=== PATIENT | female | born 1945 | race Caucasian/White ===

== ENCOUNTER → 2024-04-06 | Outpatient (CLI) | payer MEDICARE, BC, SELFPAY ==
[2024-04-06 12:36] LABS: Collection Type, Urine Clean Catch
[2024-04-06 13:08] LABS: Basophils % (Auto) 1 % (0-2.5); Eosinophils # (Auto) 0.2 Thou/mm3 (0.0-0.5); Eosinophils % (Auto) 3 % (0-10); Hematocrit 38.5 % (36.0-46.0); Hemoglobin 12.6 g/dL (12.0-16.0); Immature Granulocytes % (Auto) 2 % (0-0); Immature Granulocytes Auto 0.09 Thou/mm3 (0.00-0.00); Lymphocytes # (Auto) 2.5 Thou/mm3 (1.0-4.8); Lymphocytes % (Auto) 42 % (10-50); Mean Corpuscular HGB Conc 32.7 g/dl (31.0-37.0); Mean Corpuscular Hemoglobin 33.3 pg (25.0-35.0); Mean Corpuscular Volume 102 fL (80-100); Monocytes # (Auto) 0.5 Thou/mm3 (0.0-0.8); Monocytes % (Auto) 9 % (0-12); Neutrophils # (Auto) 2.8 Thou/mm3 (1.8-7.7); Neutrophils % (Auto) 45 % (37-80); Nucleated Red Blood Cell % 0 /100 WBC (0); Platelet Count 140 Thou/mm3 (140-440); RDW Standard Deviation 54.2 fL (36.4-46.3); Red Blood Count 3.78 Miln/mm3 (4.00-5.20); White Blood Count 6.1 Thou/mm3 (3.6-11.0)
[2024-04-06 13:20] LABS: Albumin, Serum 4.2 gm/dL (3.4-4.8); Anion Gap 7 (7-16); BUN/Creatinine Ratio 16 Ratio (12-20); Blood Urea Nitrogen 24 mg/dL (9-23); Calcium 9.8 mg/dL (8.3-10.6); Calcium (Corrected) 9.8 mg/dL (8.5-10.1); Carbon Dioxide 31.8 mMol/L (20.0-31.0); Chloride 102 mMol/L (98-107); Creatinine (Component) 1.5 mg/dL (0.6-1.3); Glucose 97 mg/dL (74-106); Osmolality,Calculated 285 (275-295); Phosphorous 2.2 mg/dL (2.4-5.1); Potassium 3.9 mMol/L (3.4-5.1); Sodium 141 mMol/L (136-145); eGFR 35 See Note
[2024-04-06 13:29] LABS: Bacteria,Urine Rare; Bilirubin,Urine Negative (Negative); Blood,Urine Negative (Negative); Clarity,Urine Clear (Clear/Hazy); Color,Urine Yellow (Lt Yel-Yel); Glucose, Urine Negative (Negative); Ketones,Urine Negative (Negative); Leukocyte Esterase,Urine Positive (Negative); Nitrite,Urine Negative (Negative); Protein,Urine Trace (Neg - Trace); RBC,Urine 3 /hpf (0-3); Specific Gravity,Urine 1.015 (1.001-1.035); Squamous Epithelial Cell,Urine < 1 /hpf (0-5); Urobilinogen,Urine Negative mg/dL (0.0-1.0); WBC,Urine 66 /hpf (0-5)
== END | disposition home or self-care (01) ==
LOC: COPL 11:53
PROVIDERS: PCP Family Medicine; Referring Provider Internal Medicine Nephrology; Visit Provider Internal Medicine Nephrology
DX: Z01.89 Encounter for other specified special examinations (principal)
CPT/HCPCS: 36415; 80069; 81001; 85025

== ENCOUNTER → 2024-06-24 | Outpatient (CLI) | payer MEDICARE, BC, SELFPAY ==
[2024-06-24 13:17] LABS: Basophils % (Auto) 0 % (0-2.5); Eosinophils # (Auto) 0.1 Thou/mm3 (0.0-0.5); Eosinophils % (Auto) 2 % (0-10); Hematocrit 38.8 % (36.0-46.0); Hemoglobin 12.6 g/dL (12.0-16.0); Immature Granulocytes % (Auto) 1 % (0-0); Immature Granulocytes Auto 0.04 Thou/mm3 (0.00-0.00); Lymphocytes # (Auto) 2.1 Thou/mm3 (1.0-4.8); Lymphocytes % (Auto) 32 % (10-50); Mean Corpuscular HGB Conc 32.5 g/dl (31.0-37.0); Mean Corpuscular Hemoglobin 33.2 pg (25.0-35.0); Mean Corpuscular Volume 102 fL (80-100); Monocytes # (Auto) 0.2 Thou/mm3 (0.0-0.8); Monocytes % (Auto) 3 % (0-12); Neutrophils # (Auto) 4.2 Thou/mm3 (1.8-7.7); Neutrophils % (Auto) 63 % (37-80); Nucleated Red Blood Cell % 0 /100 WBC (0); Platelet Count 141 Thou/mm3 (140-440); RDW Standard Deviation 55.3 fL (36.4-46.3); White Blood Count 6.6 Thou/mm3 (3.6-11.0)
[2024-06-24 13:25] LABS: Alanine Aminotransferase 28 U/L (10-49); Albumin, Serum 3.9 gm/dL (3.4-4.8); Albumin/Globulin Ratio 1.9 (1.2-2.2); Alkaline Phosphatase 64 U/L (46-116); Anion Gap 8 (7-16); Aspartate Amino Transferase 39 U/L (0-34); BUN/Creatinine Ratio 15 Ratio (12-20); Bilirubin,Total 0.7 mg/dL (0.3-1.2); Blood Urea Nitrogen 23 mg/dL (9-23); C-Reactive Protein 2.3 mg/dL (0.0-0.9); Calcium 9.2 mg/dL (8.3-10.6); Calcium (Corrected) 9.3 mg/dL (8.5-10.1); Carbon Dioxide 31.6 mMol/L (20.0-31.0); Chloride 100 mMol/L (98-107); Creatinine (Component) 1.5 mg/dL (0.6-1.3); Globulin 2.1 gm/dL (2.3-3.5); Glucose 92 mg/dL (74-106); Osmolality,Calculated 283 (275-295); Potassium 3.7 mMol/L (3.4-5.1); Sodium 140 mMol/L (136-145); eGFR 35 See Note
[2024-06-24 14:36] LABS: Sed Rate (ESR) 6 mm/hr (0-30)
== END | disposition home or self-care (01) ==
LOC: COPL 12:20
PROVIDERS: PCP Family Medicine; Referring Provider Nurse Practitioner Family; Visit Provider Nurse Practitioner Family
DX: M06.041 Rheumatoid arthritis without rheumatoid factor, right hand (principal); R53.83 Other fatigue; Z79.899 Other long term (current) drug therapy
CPT/HCPCS: 36415; 80053; 85025; 85652; 86140

== ENCOUNTER → 2024-08-06 | Outpatient (CLI) | payer MEDICARE, BC, SELFPAY ==
[2024-08-06 13:34] LABS: Basophils % (Auto) 0 % (0-2.5); Eosinophils # (Auto) 0.1 Thou/mm3 (0.0-0.5); Eosinophils % (Auto) 2 % (0-10); Hematocrit 36.9 % (36.0-46.0); Hemoglobin 11.9 g/dL (12.0-16.0); Immature Granulocytes % (Auto) 1 % (0-0); Immature Granulocytes Auto 0.06 Thou/mm3 (0.00-0.00); Lymphocytes # (Auto) 1.3 Thou/mm3 (1.0-4.8); Lymphocytes % (Auto) 25 % (10-50); Mean Corpuscular HGB Conc 32.2 g/dl (31.0-37.0); Mean Corpuscular Hemoglobin 33.4 pg (25.0-35.0); Mean Corpuscular Volume 104 fL (80-100); Monocytes # (Auto) 0.2 Thou/mm3 (0.0-0.8); Monocytes % (Auto) 4 % (0-12); Neutrophils # (Auto) 3.5 Thou/mm3 (1.8-7.7); Neutrophils % (Auto) 68 % (37-80); Nucleated Red Blood Cell % 0 /100 WBC (0); Platelet Count 175 Thou/mm3 (140-440); RDW Standard Deviation 55.8 fL (36.4-46.3); Red Blood Count 3.56 Miln/mm3 (4.00-5.20); White Blood Count 5.1 Thou/mm3 (3.6-11.0)
[2024-08-06 13:49] LABS: Parathyroid Hormone Intact 101.6 pg/ml (18.5-88.0); Sed Rate (ESR) 11 mm/hr (0-30)
[2024-08-06 13:53] LABS: Alanine Aminotransferase 26 U/L (10-49); Albumin, Serum 3.7 gm/dL (3.4-4.8); Albumin/Globulin Ratio 1.8 (1.2-2.2); Alkaline Phosphatase 61 U/L (46-116); Anion Gap 8 (7-16); Aspartate Amino Transferase 42 U/L (0-34); BUN/Creatinine Ratio 11 Ratio (12-20); Blood Urea Nitrogen 15 mg/dL (9-23); C-Reactive Protein 3.2 mg/dL (0.0-0.9); Calcium 8.9 mg/dL (8.3-10.6); Calcium (Corrected) 9.1 mg/dL (8.5-10.1); Carbon Dioxide 30.1 mMol/L (20.0-31.0); Chloride 103 mMol/L (98-107); Creatinine (Component) 1.4 mg/dL (0.6-1.3); Globulin 2.1 gm/dL (2.3-3.5); Glucose 178 mg/dL (74-106); Osmolality,Calculated 286 (275-295); Phosphorous 1.5 mg/dL (2.4-5.1); Potassium 3.7 mMol/L (3.4-5.1); Sodium 141 mMol/L (136-145); Total Protein 5.8 gm/dL (5.7-8.2); eGFR 38 See Note
[2024-08-06 13:57] LABS: Vitamin D 25 Hydroxy Total 44.1 ng/mL (7.3-40.2)
[2024-08-07 14:08] LABS: Cocci Serology, IgM Negative (Negative)
[2024-08-08 15:54] LABS: Cocci Serology, IgG Negative (Negative)
== END | disposition home or self-care (01) ==
LOC: COPL 12:35
PROVIDERS: PCP Family Medicine; Referring Provider Internal Medicine Nephrology; Visit Provider Nurse Practitioner Family
DX: M32.9 Systemic lupus erythematosus, unspecified (principal); N18.32 Chronic kidney disease, stage 3b; M05.79 Rheumatoid arthritis with rheumatoid factor of multiple sites without organ or systems involvement; M81.0 Age-related osteoporosis without current pathological fracture; M79.7 Fibromyalgia; Z79.899 Other long term (current) drug therapy; R53.83 Other fatigue
CPT/HCPCS: 36415; 80053; 81001; 82306; 83970; 84100; 85025; 85652; 86140; 86331; 86635

== ENCOUNTER 2024-08-30 15:04 | Emergency (ER) | payer MEDICARE, BC, SELFPAY ==
[2024-08-30 15:06] VITALS: BMI 38.0
[2024-08-30 15:17] VITALS: BP 110/70; PULSE 83; RESP 18; TEMP 36.8; O2SAT 97
--- NOTE | 2024-08-30 15:23 | XR_ITS ---
Examination: Duplex scan of the lower extremity, unilateral right Date and time of exam: August 30, 2024 1536 hours INDICATIONS: Right leg swelling and pain beginning 2 days ago Technique: Duplex scan of the extremity veins using B-mode/grayscale imaging and Doppler spectral analysis and color flow Attention is directed to internal echogenicity, compression and augmentation involving these veins, color flow assessment, spectral analysis Findings: Positive for nonocclusive DVT involving the right common femoral, superficial femoral, popliteal, peroneal posterior tibial veins IMPRESSION: Extensive acute deep vein thrombus
--- NOTE | 2024-08-30 15:23 | PD.EDRME ---
Rapid Medical Screening Exam RME Arrival date/time: 08/30/24 15:04 78-year-old female with a history of hypertension, congestive heart failure, presents to the emergency room with a chief complaint of right lower extremity swelling and tenderness to her calf x 2 days I have greeted and performed a focused initial assessment of this patient. A comprehensive ED assessment and evaluation of the patient, analysis of all test results, and completion of the medical decision making process will be conducted by additional ED providers. Chief Complaint: Extremity Injury, Lower Time Seen by Provider: 08/30/24 15:14 Vital signs: Vital Signs Temperature 98.3 F 08/30/24 15:17 Pulse Rate 83 08/30/24 15:17 Respiratory Rate 18 08/30/24 15:17 Blood Pressure 110/70 08/30/24 15:17 Pulse Oximetry (%) 97 08/30/24 15:17 Oxygen Delivery Method Room Air 08/30/24 15:17 Vital signs reviewed by provider: Yes
[2024-08-30 15:50] LABS: Basophils % (Auto) 0 % (0-2.5); Eosinophils # (Auto) 0.2 Thou/mm3 (0.0-0.5); Eosinophils % (Auto) 3 % (0-10); Hematocrit 33.3 % (36.0-46.0); Hemoglobin 11.5 g/dL (12.0-16.0); Immature Granulocytes % (Auto) 1 % (0-0); Immature Granulocytes Auto 0.06 Thou/mm3 (0.00-0.00); Lymphocytes % (Auto) 38 % (10-50); Mean Corpuscular HGB Conc 34.5 g/dl (31.0-37.0); Mean Corpuscular Hemoglobin 34.1 pg (25.0-35.0); Mean Corpuscular Volume 99 fL (80-100); Monocytes # (Auto) 0.3 Thou/mm3 (0.0-0.8); Monocytes % (Auto) 6 % (0-12); Neutrophils # (Auto) 2.6 Thou/mm3 (1.8-7.7); Neutrophils % (Auto) 51 % (37-80); Nucleated Red Blood Cell # 0.03 Thou/mm3 (0.00-0.00); Nucleated Red Blood Cell % 1 /100 WBC (0); Platelet Count 112 Thou/mm3 (140-440); RDW Standard Deviation 53.9 fL (36.4-46.3); Red Blood Count 3.37 Miln/mm3 (4.00-5.20); White Blood Count 5.1 Thou/mm3 (3.6-11.0)
[2024-08-30 16:03] LABS: Partial Thromboplastin Time 26.6 Seconds (22.0-36.0); Prothrombin Time 11.2 Seconds (9.0-12.2)
[2024-08-30 16:05] LABS: Alanine Aminotransferase 24 U/L (10-49); Albumin, Serum 4.1 gm/dL (3.4-4.8); Albumin/Globulin Ratio 2.1 (1.2-2.2); Alkaline Phosphatase 64 U/L (46-116); Anion Gap 10 (7-16); BUN/Creatinine Ratio 17 Ratio (12-20); Bilirubin,Total 0.8 mg/dL (0.3-1.2); Blood Urea Nitrogen 26 mg/dL (9-23); Calcium 9.4 mg/dL (8.3-10.6); Calcium (Corrected) 9.4 mg/dL (8.5-10.1); Carbon Dioxide 29.8 mMol/L (20.0-31.0); Chloride 102 mMol/L (98-107); Creatinine (Component) 1.5 mg/dL (0.6-1.3); Estimated Creatinine Clearance 29.6 mL/min (>60); Glucose 98 mg/dL (74-106); Osmolality,Calculated 287 (275-295); Potassium 3.5 mMol/L (3.4-5.1); Sodium 142 mMol/L (136-145); Total Protein 6.1 gm/dL (5.7-8.2); eGFR 35 See Note
--- NOTE | 2024-08-30 19:51 | EDNOTE_ITS ---
Lower Extremity Injury RME/HPI General Chief Complaint: Extremity Injury, Lower Stated Complaint: RT LEG SWOLLEN Time Seen by Provider: 08/30/24 15:14 Arrival date/time: 08/30/24 15:04 RME / HPI RME / HPI Narrative: 08/30/24 15:04 78-year-old female with a history of hypertension, congestive heart failure, presents to the emergency room with a chief complaint of right lower extremity swelling and tenderness to her calf x 2 days I have greeted and performed a focused initial assessment of this patient. A comprehensive ED assessment and evaluation of the patient, analysis of all test results, and completion of the medical decision making process will be conducted by additional ED providers. ----- Dr. Grimes?s Main ED Evaluation: 78yo female with a history of CHF, HTN, back surgery 6 years ago, w/c bound presents to the ED for a chief complaint of RLE swelling. Patient states she started noticing her right leg was swollen 2 nights ago, reporting it wouldn't subside, so she came in for evaluation. Patient reports having chronic shortness of breath and cough. Patient denies any RLE pain, chest pain, worsening shortness of breath, fever, chills or any other associated symptoms. Related Data Home Medications ?Medication ?Instructions ?Recorded ?Confirmed CHOLECALCIFEROL (VITAMIN D3) 2,000 iu PO DAILY ##0 (VITAMIN D3) Diclofenac Sodium 100 mg PO DAILY ##0 08/07/12 calcium carbonate 500 mg PO DAILY ##0 08/07/12 diphenhydramine HCl 25 mg capsule 25 mg PO HS ##0 07/22 10/03 (Benadryl) hydroxychloroquine 200 mg tablet 200 mg PO BID ##0 (Plaquenil) infliximab 100 mg intravenous ##0 08/07/12 solution (Remicade) loratadine 10 mg tablet (Alavert) 10 mg PO DAILY ##0 0 08/07/12 prednisone 5 mg tablet,delayed 5 mg PO DAILY ##0 08/07 release (Nimisha) tramadol 50 mg tablet (Ultram) 50 mg PO [id number] ##0 valsartan 160 mg tablet (Diovan) 160 mg PO DAILY ##0 0 08/07/12 Previous Rx's ?Medication ?Instructions ?Recorded apixaban 5 mg (74 tabs) tablets in 5 mg PO BID #74 tab s 08/30/24 a dose pack (Eliquis DVT-PE Treat 30D Start) Allergies Allergy/AdvReac Type Severity Reaction Status Date / Time Penicillins Allergy Severe Anaphylaxis Verified 08/08/12 08:56 codeine Allergy Verified 08/08/12 08:56 Review of Systems Review of Systems Systems Reviewed: All systems reviewed, normal except as documented Past Medical History Past Medical History OTHER HISTORY: Negative Blood Transfusions Social History SMOKING STATUS: Never smoker ED Exam Narrative Physical exam: GENERAL APPEARANCE: alert and oriented x 4, well-developed, well-nourished, no acute distress VITALS: All vitals were reviewed and the pulse ox is 97% on room air, which is normal according to my interpretation. HEENT: Normocephalic, atraumatic; pupils equal, round, reactive to light; EOMI; mucous membranes pink, moist; oropharynx clear NECK: Supple LUNGS: CTABL; no wheezes, no rales, no rhonchi HEART: Regular rate, regular rhythm; normal S1, S2; no murmurs ABDOMEN: non distended; normal BS; soft, no tenderness, no guarding, no rebound; no masses, no organomegaly, no hernia BACK: no CVA tenderness EXTREMITIES: atraumatic; mild edema and tenderness to the RLE NEUROLOGIC: awake; alert and oriented x4; cranial nerves II-XII grossly intact; no focal sensory or motor deficits PSYCHIATRIC: appropriate mood and affect SKIN: warm, dry, normal color; no rashes Course Quality Measures none Orders Category Date Time Status US venous doppler LE RT Stat Exams 08/30/24 15:23 Completed CBC Stat Lab 08/30/24 15:28 Completed CMP [Comprehensive Metabolic Panel] Stat Lab 08/30/24 15:28 Completed PT [Prothrombin Time with INR] Stat Lab 08/30/24 15:28 Completed PTT [Partial Thromboplastin Time] Stat Lab 08/30/24 15:28 Completed Apixaban [Eliquis] Med 08/30/24 19:53 Once 5 mg PO X1 ONE Vital Signs Vital signs: Vital Signs Temperature 98.3 F 08/30/24 15:17 Pulse Rate 83 08/30/24 15:17 Respiratory Rate 18 08/30/24 15:17 Blood Pressure 110/70 08/30/24 15:17 Pulse Oximetry (%) 97 08/30/24 15:17 Oxygen Delivery Method Room Air 08/30/24 15:17 Extremity Injury, Lower MDM Narrative MDM Narrative:: Scribe Attestation: 08/30/24 Xenia Alcazar am scribing for and in the presence of Dr. Grimes. Patient data External records reviewed:: [facility] previous records (Per chart review, patient has no previous ED visits or admissions to this facility.) Clinical information provided by:: patient Social determinants that could affect healthcare access:: none Patient has the following chronic illnesses:: CHF, HTN, back surgery 6 years ago How is presenting disease/condition affected by chronic disease/condition?: uneffected by Evaluation data The following diagnostics were reviewed and interpreted by me:: lab results and radiology exam(s) Lab and/or radiology exams considered but not ordered:: none Interpretation Summary: CBC normal, PT/INR/PTT normal, Creatinine 1.5. -------- [facility] [place] Report Signed Patient: JOEY RAMÍREZ Record#: [id number] Birthdate: 1945 Age/Sex: 78 / F Location: [facility] [place] Attending Dr: Ordering Physician: Fernando Mcdonald Date of Service: 08/30/24 Procedure(s): US venous doppler LE RT Accession Number(s): [id number] cc: Fernando Mcdonald; Meng Negron MD~ Examination: Duplex scan of the lower extremity, unilateral right Date and time of exam: August 30, 2024 1536 hours INDICATIONS: Right leg swelling and pain beginning 2 days ago Technique: Duplex scan of the extremity veins using B-mode/grayscale imaging and Doppler spectral analysis and color flow Attention is directed to internal echogenicity, compression and augmentation involving these veins, color flow assessment, spectral analysis Findings: Positive for nonocclusive DVT involving the right common femoral, superficial femoral, popliteal, peroneal posterior tibial veins IMPRESSION: Extensive acute deep vein thrombus Dictated By: Meng Negron MD Signed By: <Electronically signed by Meng Negron MD in OV> 08/30/24 1811 Medications / Prescriptions Medications or Prescriptions considered but not ordered:: none Medication administrations:: Medication Administration History Apixaban (Apixaban 2.5 Mg Tablet) 5 mg PO X1 ONE Stop: 08/30/24 19:54 see above Consultations Consultation(s) initiated? (list below): No Diagnosis Extremity Injury, Lower Differential Diagnosis: other (cellulitis, DVT, lymphedema) Most likely diagnosis given after review of the tests above:: right leg DVT Admission Indicated Admission indicated?: not indicated Explain why admission is indicated or not indicated:: Patient is stable to be managed as an outpatient. Admission Request Was there a request for admission?: No Disposition Plan Disposition Plan: Discharge Discharge Attestation Discharge Attestation: The patient and all family members were given an opportunity to ask questions and understood the discharge instructions. Discharge instructions specifically effects, indications for sooner follow up or return to the emergency department, and the expected course of current diagnosis. Patient condition: Stable Discharge Plan Plan Patient Disposition: HOME (Self Care) Prescriptions/Referrals Prescriptions/Med Rec: Rustam Fall DVT-PE Treat 30D Start 5 mg (74 tabs) tablets,dose pack 5 mg PO BID Qty: 74 0RF No Action tramadol [Ultram] 50 MG tablet 50 mg PO [id number] Qty: 0 calcium carbonate 1 TAB tablet 500 mg PO DAILY Qty: 0 diphenhydramine HCl [Benadryl] 25 MG capsule 25 mg PO HS Qty: 0 infliximab [Remicade] 100 MG/VIAL recon soln Qty: 0 hydroxychloroquine [Plaquenil] 200 MG tablet 200 mg PO BID Qty: 0 loratadine [Alavert] 10 MG tablet 10 mg PO DAILY Qty: 0 valsartan [Diovan] 160 MG tablet 160 mg PO DAILY Qty: 0 prednisone [Nimisha] 5 MG tablet,delayed release (DR/EC) 5 mg PO DAILY Qty: 0 CHOLECALCIFEROL (VITAMIN D3) (VITAMIN D3) 2,000 UNIT capsule 2,000 iu PO DAILY Qty: 0 Diclofenac Sodium 100 MG TAB.SR.24H 100 mg PO DAILY Qty: 0 Referrals: No Primary/Family,Physician [Primary Care Provider] - In 1 week Problem List Clinical Impression: Right leg DVT Patient/Caregiver Discharge Instructions Education Materials: Understanding Deep Vein Thrombosis, Venous Thromboembolism Print Language: Cuban Stand Alone Forms: [employer] Patient Portal Info Letter
[2024-08-30] MEDS: APIXABAN 2.5 MG TABLET 5 MG PO (20:10)
[2024-08-30 20:11] VITALS: BP 100/68; PULSE 77; RESP 16; TEMP 36.7; O2SAT 99
== END 2024-08-30 20:17 | disposition home or self-care (01) ==
PROVIDERS: Nurse Practitioner Family; Emergency Provider Emergency Medicine; PCP Family Medicine
DX: I82.411 Acute embolism and thrombosis of right femoral vein (principal); I82.431 Acute embolism and thrombosis of right popliteal vein; I82.441 Acute embolism and thrombosis of right tibial vein; I82.451 Acute embolism and thrombosis of right peroneal vein
CPT/HCPCS: 36415; 80053; 85025; 85610; 85730; 93971; 99284; A9270

== ENCOUNTER → 2024-09-15 | Outpatient (CLI) | payer MEDICARE, BC, SELFPAY ==
[2024-09-15 10:39] LABS: Quantiferon-TB* See Sep Rpt
[2024-09-15 11:26] LABS: Basophils % (Auto) 0 % (0-2.5); Eosinophils # (Auto) 0.1 Thou/mm3 (0.0-0.5); Eosinophils % (Auto) 2 % (0-10); Hematocrit 36.4 % (36.0-46.0); Hemoglobin 11.8 g/dL (12.0-16.0); Immature Granulocytes % (Auto) 1 % (0-0); Immature Granulocytes Auto 0.08 Thou/mm3 (0.00-0.00); Lymphocytes # (Auto) 2.4 Thou/mm3 (1.0-4.8); Lymphocytes % (Auto) 35 % (10-50); Mean Corpuscular HGB Conc 32.4 g/dl (31.0-37.0); Mean Corpuscular Hemoglobin 34.2 pg (25.0-35.0); Mean Corpuscular Volume 106 fL (80-100); Monocytes # (Auto) 0.4 Thou/mm3 (0.0-0.8); Monocytes % (Auto) 6 % (0-12); Neutrophils # (Auto) 3.8 Thou/mm3 (1.8-7.7); Neutrophils % (Auto) 56 % (37-80); Nucleated Red Blood Cell % 0 /100 WBC (0); Platelet Count 107 Thou/mm3 (140-440); RDW Standard Deviation 58.6 fL (36.4-46.3); Red Blood Count 3.45 Miln/mm3 (4.00-5.20); White Blood Count 6.8 Thou/mm3 (3.6-11.0)
[2024-09-15 11:41] LABS: Alanine Aminotransferase 25 U/L (10-49); Albumin, Serum 3.8 gm/dL (3.4-4.8); Alkaline Phosphatase 69 U/L (46-116); Anion Gap 7 (7-16); Aspartate Amino Transferase 35 U/L (0-34); BUN/Creatinine Ratio 14 Ratio (12-20); Bilirubin,Total 0.5 mg/dL (0.3-1.2); Blood Urea Nitrogen 23 mg/dL (9-23); Calcium 9.1 mg/dL (8.3-10.6); Calcium (Corrected) 9.3 mg/dL (8.5-10.1); Carbon Dioxide 33.5 mMol/L (20.0-31.0); Chloride 101 mMol/L (98-107); Creatinine (Component) 1.6 mg/dL (0.6-1.3); Globulin 1.9 gm/dL (2.3-3.5); Glucose 141 mg/dL (74-106); Osmolality,Calculated 286 (275-295); Potassium 3.3 mMol/L (3.4-5.1); Sodium 141 mMol/L (136-145); Total Protein 5.7 gm/dL (5.7-8.2); eGFR 32 See Note
[2024-09-15 11:42] LABS: Vitamin D 25 Hydroxy Total 36.3 ng/mL (7.3-40.2)
[2024-09-15 11:46] LABS: Sed Rate (ESR) 5 mm/hr (0-30)
[2024-09-15 13:37] LABS: Cocci Serology, IgM Negative (Negative)
[2024-09-16 12:40] LABS: Cocci Serology, IgG Negative (Negative)
== END | disposition home or self-care (01) ==
LOC: COPL 10:17
PROVIDERS: PCP Family Medicine; Referring Provider Internal Medicine; Visit Provider Nurse Practitioner Family
DX: M05.79 Rheumatoid arthritis with rheumatoid factor of multiple sites without organ or systems involvement (principal); M79.7 Fibromyalgia; M81.0 Age-related osteoporosis without current pathological fracture; R53.83 Other fatigue; Z79.899 Other long term (current) drug therapy
CPT/HCPCS: 36415; 80053; 82306; 85025; 85652; 86140; 86331; 86480; 86635

== ENCOUNTER → 2024-11-11 | Outpatient (CLI) | payer MEDICARE, BC, SELFPAY ==
[2024-11-11 13:59] LABS: Collection Type, Urine Clean Catch
[2024-11-11 14:17] LABS: Bilirubin,Urine Negative (Negative); Blood,Urine Negative (Negative); Clarity,Urine Clear (Clear/Hazy); Color,Urine Yellow (Lt Yel-Yel); Culture Indicated,Urine Not Indicated; Glucose, Urine Negative (Negative); Hyaline Casts,Urine < 1 /hpf (0-1); Ketones,Urine Negative (Negative); Leukocyte Esterase,Urine Positive (Negative); Nitrite,Urine Negative (Negative); PH,Urine 6.0 (5.0-7.0); Protein,Urine Negative (Neg - Trace); RBC,Urine 1 /hpf (0-3); Specific Gravity,Urine 1.016 (1.001-1.035); Squamous Epithelial Cell,Urine 1 /hpf (0-5); Urobilinogen,Urine Negative mg/dL (0.0-1.0); WBC,Urine 9 /hpf (0-5)
[2024-11-11 14:17] LABS: Basophils # (Auto) 0.0 Thou/mm3 (0.0-0.2); Basophils % (Auto) 1 % (0-2.5); Eosinophils # (Auto) 0.1 Thou/mm3 (0.0-0.5); Eosinophils % (Auto) 2 % (0-10); Hematocrit 38.7 % (36.0-46.0); Hemoglobin 12.7 g/dL (12.0-16.0); Immature Granulocytes Auto 0.06 Thou/mm3 (0.00-0.00); Lymphocytes # (Auto) 1.8 Thou/mm3 (1.0-4.8); Lymphocytes % (Auto) 34 % (10-50); Mean Corpuscular HGB Conc 32.8 g/dl (31.0-37.0); Mean Corpuscular Hemoglobin 33.8 pg (25.0-35.0); Mean Corpuscular Volume 103 fL (80-100); Monocytes # (Auto) 0.2 Thou/mm3 (0.0-0.8); Monocytes % (Auto) 4 % (0-12); Neutrophils # (Auto) 3.2 Thou/mm3 (1.8-7.7); Neutrophils % (Auto) 59 % (37-80); Nucleated Red Blood Cell # 0.00 Thou/mm3 (0.00-0.00); Nucleated Red Blood Cell % 0 /100 WBC (0); Platelet Count 193 Thou/mm3 (140-440); RDW Standard Deviation 55.5 fL (36.4-46.3); Red Blood Count 3.76 Miln/mm3 (4.00-5.20); White Blood Count 5.4 Thou/mm3 (3.6-11.0)
[2024-11-11 14:35] LABS: Alanine Aminotransferase 30 U/L (10-49); Albumin, Serum 3.8 gm/dL (3.4-4.8); Albumin/Globulin Ratio 2.0 (1.2-2.2); Alkaline Phosphatase 59 U/L (46-116); Anion Gap 10 (7-16); Aspartate Amino Transferase 51 U/L (0-34); BUN/Creatinine Ratio 13 Ratio (12-20); Bilirubin,Total 0.7 mg/dL (0.3-1.2); Blood Urea Nitrogen 17 mg/dL (9-23); C-Reactive Protein 1.6 mg/dL (0.0-0.9); Calcium 10.1 mg/dL (8.3-10.6); Calcium (Corrected) 10.3 mg/dL (8.5-10.1); Carbon Dioxide 30.8 mMol/L (20.0-31.0); Chloride 100 mMol/L (98-107); Creatinine (Component) 1.3 mg/dL (0.6-1.3); Globulin 1.9 gm/dL (2.3-3.5); Glucose 100 mg/dL (74-106); Osmolality,Calculated 282 (275-295); Phosphorous 2.6 mg/dL (2.4-5.1); Potassium 3.3 mMol/L (3.4-5.1); Sed Rate (ESR) 14 mm/hr (0-30); Sodium 141 mMol/L (136-145); Total Protein 5.7 gm/dL (5.7-8.2); eGFR 42 See Note
== END | disposition home or self-care (01) ==
LOC: COPL 12:59
PROVIDERS: PCP Family Medicine; Referring Provider Internal Medicine Nephrology; Visit Provider Internal Medicine
DX: M06.041 Rheumatoid arthritis without rheumatoid factor, right hand (principal); M06.042 Rheumatoid arthritis without rheumatoid factor, left hand; M81.0 Age-related osteoporosis without current pathological fracture; Z87.310 Personal history of (healed) osteoporosis fracture; R53.83 Other fatigue; Z79.899 Other long term (current) drug therapy; R74.8 Abnormal levels of other serum enzymes; I10 Essential (primary) hypertension; M15.0 Primary generalized (osteo)arthritis; Z87.891 Personal history of nicotine dependence; G89.29 Other chronic pain; M35.3 Polymyalgia rheumatica; Z79.52 Long term (current) use of systemic steroids; M05.79 Rheumatoid arthritis with rheumatoid factor of multiple sites without organ or systems involvement; M79.7 Fibromyalgia; R53.82 Chronic fatigue, unspecified; M79.2 Neuralgia and neuritis, unspecified
CPT/HCPCS: 36415; 80053; 81001; 84100; 85025; 85652; 86140

== ENCOUNTER → 2025-01-24 | Outpatient (CLI) | payer MEDICARE, BC, SELFPAY ==
[2025-01-24 10:56] LABS: Quantiferon-TB* See Sep Rpt
== END | disposition home or self-care (01) ==
LOC: COPL 10:42
PROVIDERS: PCP Family Medicine; Referring Provider Internal Medicine; Visit Provider Internal Medicine
DX: M06.041 Rheumatoid arthritis without rheumatoid factor, right hand (principal); M06.042 Rheumatoid arthritis without rheumatoid factor, left hand
CPT/HCPCS: 86480

== ENCOUNTER → 2025-02-24 | Outpatient (CLI) | payer MEDICARE, BC, SELFPAY ==
[2025-02-24 12:30] LABS: Basophils # (Auto) 0.0 Thou/mm3 (0.0-0.2); Basophils % (Auto) 1 % (0-2.5); Eosinophils # (Auto) 0.1 Thou/mm3 (0.0-0.5); Eosinophils % (Auto) 2 % (0-10); Hematocrit 38.3 % (36.0-46.0); Hemoglobin 12.2 g/dL (12.0-16.0); Immature Granulocytes Auto 0.05 Thou/mm3 (0.00-0.00); Lymphocytes # (Auto) 2.1 Thou/mm3 (1.0-4.8); Lymphocytes % (Auto) 34 % (10-50); Mean Corpuscular HGB Conc 31.9 g/dl (31.0-37.0); Mean Corpuscular Hemoglobin 33.4 pg (25.0-35.0); Mean Corpuscular Volume 105 fL (80-100); Monocytes # (Auto) 0.7 Thou/mm3 (0.0-0.8); Monocytes % (Auto) 10 % (0-12); Neutrophils # (Auto) 3.3 Thou/mm3 (1.8-7.7); Neutrophils % (Auto) 52 % (37-80); Nucleated Red Blood Cell # 0.00 Thou/mm3 (0.00-0.00); Nucleated Red Blood Cell % 0 /100 WBC (0); Platelet Count 162 Thou/mm3 (140-440); RDW Standard Deviation 57.1 fL (36.4-46.3); Red Blood Count 3.65 Miln/mm3 (4.00-5.20); White Blood Count 6.3 Thou/mm3 (3.6-11.0)
[2025-02-24 12:36] LABS: Alanine Aminotransferase 14 U/L (10-49); Albumin, Serum 4.0 gm/dL (3.4-4.8); Albumin/Globulin Ratio 2.1 (1.2-2.2); Alkaline Phosphatase 62 U/L (46-116); Anion Gap 7 (7-16); Aspartate Amino Transferase 33 U/L (0-34); BUN/Creatinine Ratio 12 Ratio (12-20); Bilirubin,Total 0.5 mg/dL (0.3-1.2); Blood Urea Nitrogen 14 mg/dL (9-23); C-Reactive Protein 0.5 mg/dL (0.0-0.9); Calcium 9.4 mg/dL (8.3-10.6); Calcium (Corrected) 9.4 mg/dL (8.5-10.1); Carbon Dioxide 33.3 mMol/L (20.0-31.0); Chloride 102 mMol/L (98-107); Creatinine (Component) 1.2 mg/dL (0.6-1.3); Globulin 1.9 gm/dL (2.3-3.5); Glucose 109 mg/dL (74-106); Osmolality,Calculated 284 (275-295); Potassium 3.1 mMol/L (3.4-5.1); Sodium 142 mMol/L (136-145); Total Protein 5.9 gm/dL (5.7-8.2); eGFR 45 See Note
[2025-02-24 12:49] LABS: Vitamin D 25 Hydroxy Total 39.2 ng/mL (7.3-40.2)
[2025-02-24 13:18] LABS: Sed Rate (ESR) 5 mm/hr (0-30)
== END | disposition home or self-care (01) ==
PROVIDERS: PCP Family Medicine
DX: M06.041 Rheumatoid arthritis without rheumatoid factor, right hand (principal); M81.0 Age-related osteoporosis without current pathological fracture; M05.79 Rheumatoid arthritis with rheumatoid factor of multiple sites without organ or systems involvement; Z79.899 Other long term (current) drug therapy; R53.83 Other fatigue
CPT/HCPCS: 36415; 80053; 82306; 85025; 85652; 86140

== ENCOUNTER → 2025-03-07 | Outpatient (CLI) | payer MEDICARE, BC, SELFPAY ==
--- NOTE | 2025-03-07 | XR_ITS ---
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 Peak reference and age match control results have been displayed. Findings: Lumbar spine total bone mineralization is 1.214 gm/cm2. This is 1.8 standard deviations above peak reference. This is 4.4 standard deviations above age-matched controls. Hip total bone mineralization is 0.812 gm/cm2 This is 1.1 standard deviations below peak reference. This is 1.1 standard deviations above age-matched controls Impression: There is normal mineralization based on lumbar spine measurements. There is osteopenia based on hip measurements Lumbar mineralization is increased 6.5% compared with March 04, 2023 Hip mineralization is increased 4.2% compared with March 04, 2023
== END | disposition home or self-care (01) ==
LOC: CDIM 12:38
PROVIDERS: PCP Family Medicine; Referring Provider Nurse Practitioner Family; Visit Provider Nurse Practitioner Family
DX: M85.89 Other specified disorders of bone density and structure, multiple sites (principal)
CPT/HCPCS: 77080

== ENCOUNTER → 2025-03-14 | Outpatient (CLI) | payer MEDICARE, BC, SELFPAY ==
[2025-03-14 13:58] LABS: Collection Type, Urine Clean Catch; Squamous Epithelial Cell,Urine 0 /hpf (0-5)
[2025-03-14 14:18] LABS: Basophils # (Auto) 0.0 Thou/mm3 (0.0-0.2); Basophils % (Auto) 1 % (0-2.5); Eosinophils # (Auto) 0.1 Thou/mm3 (0.0-0.5); Eosinophils % (Auto) 1 % (0-10); Hematocrit 40.6 % (36.0-46.0); Hemoglobin 13.0 g/dL (12.0-16.0); Immature Granulocytes Auto 0.10 Thou/mm3 (0.00-0.00); Lymphocytes # (Auto) 1.6 Thou/mm3 (1.0-4.8); Lymphocytes % (Auto) 20 % (10-50); Mean Corpuscular HGB Conc 32.0 g/dl (31.0-37.0); Mean Corpuscular Hemoglobin 32.9 pg (25.0-35.0); Mean Corpuscular Volume 103 fL (80-100); Monocytes # (Auto) 0.5 Thou/mm3 (0.0-0.8); Monocytes % (Auto) 6 % (0-12); Neutrophils # (Auto) 6.0 Thou/mm3 (1.8-7.7); Neutrophils % (Auto) 72 % (37-80); Nucleated Red Blood Cell # 0.00 Thou/mm3 (0.00-0.00); Nucleated Red Blood Cell % 0 /100 WBC (0); Platelet Count 155 Thou/mm3 (140-440); RDW Standard Deviation 51.0 fL (36.4-46.3); Red Blood Count 3.95 Miln/mm3 (4.00-5.20); White Blood Count 8.3 Thou/mm3 (3.6-11.0)
[2025-03-14 14:22] LABS: Bilirubin,Urine Negative (Negative); Blood,Urine Negative (Negative); Clarity,Urine Clear (Clear/Hazy); Color,Urine Lt-Yellow (Lt Yel-Yel); Glucose, Urine Negative (Negative); Ketones,Urine Negative (Negative); Leukocyte Esterase,Urine Positive (Negative); Nitrite,Urine Negative (Negative); PH,Urine 7.0 (5.0-7.0); Protein,Urine Negative (Neg - Trace); RBC,Urine 2 /hpf (0-3); Specific Gravity,Urine 1.007 (1.001-1.035); Urobilinogen,Urine Negative mg/dL (0.0-1.0); WBC,Urine 1 /hpf (0-5)
[2025-03-14 14:34] LABS: Albumin, Serum 4.3 gm/dL (3.4-4.8); Anion Gap 9 (7-16); BUN/Creatinine Ratio 15 Ratio (12-20); Blood Urea Nitrogen 20 mg/dL (9-23); Calcium 8.8 mg/dL (8.3-10.6); Calcium (Corrected) 8.8 mg/dL (8.5-10.1); Carbon Dioxide 32.9 mMol/L (20.0-31.0); Chloride 103 mMol/L (98-107); Creatinine (Component) 1.3 mg/dL (0.6-1.3); Glucose 95 mg/dL (74-106); Osmolality,Calculated 291 (275-295); Phosphorous 2.1 mg/dL (2.4-5.1); Potassium 3.8 mMol/L (3.4-5.1); Sodium 145 mMol/L (136-145); eGFR 41 See Note
== END | disposition home or self-care (01) ==
PROVIDERS: PCP Family Medicine; Referring Provider Internal Medicine Nephrology; Visit Provider Internal Medicine Nephrology
DX: N39.0 Urinary tract infection, site not specified (principal)
CPT/HCPCS: 36415; 80069; 81001; 85025